=== PATIENT | male | born 1955 | race Caucasian/White ===

== ENCOUNTER 2018-01-03 09:14 | Inpatient (IN) ==
--- NOTE | 2018-01-03 09:35 | Emergency Department Report ---
General Adult HPI - General Chief complaint: Abdominal Pain Stated complaint: abd pain Time Seen by Provider: 01/03/18 09:35 Source: patient Mode of arrival: ambulatory Limitations: no limitations - History of Present Illness HPI narrative: 62 M presents to the ED with the chief complaint of left lower quadrant abdominal pain. Patient noted onset of symptoms earlier this week. Symptoms have been gradually progressive in nature. He has been passing mucus with his stool. No blood in the stool. Pain is moderate. Pain is dull. No radiation. He was at home when his symptoms began. Symptoms have been persistent in nature since onset. He does not note any exacerbating or remitting factors. No other complaints or associated symptoms. Patient denies any recent trauma, travel, poorly prepared food, or recent antibiotic use. - Related Data Home Medications Medication Instructions Recorded Confirmed 5-Hydroxytryptophan (5-Htp) [5-Htp] 100 mg PO DAILY PRN 01/03/18 01/03/18 Acetaminophen [Tylenol] 1,000 mg PO DAILY 01/03/18 01/03/18 Albuterol Sulfate [Proair Hfa] 2 puff INH Q4H PRN 01/03/18 01/03/18 Aspirin [Adult Aspirin] 81 mg PO DAILY 01/03/18 01/03/18 Budesonide/Formoterol Fumarate 2 spray INH BID 01/03/18 01/03/18 [Symbicort 160-4.5 Mcg Inhaler] Docusate Sodium [Colace] 100 mg PO HS 01/03/18 01/03/18 Fluticasone Nasal [place] [Flonase] 1 spray EA NOSTRIL DAILY 01/03/18 01/03/18 Ibuprofen [Advil] 400 mg PO BID 01/03/18 01/03/18 Omeprazole [Prilosec] 20 mg PO DAILY 01/03/18 01/03/18 Psyllium Husk [Metamucil] 1 dose PO DAILY 01/03/18 01/03/18 Allergies Allergy/AdvReac Type Severity Reaction Status Date / Time morphine Allergy Rash Verified 01/03/18 09:21 Review of Systems Constitutional: Denies: fever, weakness Eyes: Denies: eye pain, vision change ENT: Denies: ear pain, throat pain Cardiovascular: Denies: chest pain, palpitations Respiratory: Denies: cough, dyspnea Gastrointestinal: Reports: abdominal pain, diarrhea. Denies: nausea, vomiting Genitourinary: Denies: urgency, dysuria Musculoskeletal: Denies: back pain, arthralgia Integumentary: Denies: erythema, rash Neurological: Denies: headache, numbness, paresthesias Psychiatric: Denies: anxiety, depression Endocrine: Denies: polydipsia, polyuria Hematological/Lymphatic: Denies: easy bruising, lymphadenopathy Allergic/Immunologic: Denies: facial swelling, urticaria PFSH Patient Stated Medical History Asthma Yes Sleep Apnea No Gastroesophageal Reflux Yes Disease Other GI Yes: diverticuli Hx Kidney Stones Yes Clinic Medical History (Last Reviewed 12/01/17 @ 16:12 by DANY Mcmullen) Asthma (Chronic Medical) Allergic bronchitis (Chronic Medical) Allergic rhinitis (Chronic Medical) Hyperlipidemia (Chronic Medical) Hx of renal calculi (Acute Medical) 1997 Surgical History: Tonsillectomy 1960. Spermatocelectomy 2000. L hernia repair 2005. Hemorrhoidectomy. BILATERAL CATARCT SURGERY - LEFT 09/02/16, RIGHT 10/14. Right shoulder arthroscopic rotator cuff repair. W/ Right shoulder arthroscopic limited debridement superior labrum. W/ Right shoulder arthroscopic subacromial decompression/acromioplasty. 07/22/17 Family History: Family History (Last Reviewed 12/01/17 @ 16:12 by DANY Mcmullen) Father , at age 55 Esophageal cancer Mother , at age 75 High blood pressure Osteoporosis Cancer of lung - Social History Smoking status: Former smoker second hand exposure: No Quit date: 06/01/09 Substance use type: does not use Alcohol intake frequency: does not drink Housing: house Household members: spouse, other Current occupational status: employed Current occupation: Dispatcher for [employer] Does patient use chewing tobacco?: No Physical Exam - Limitations Limitations: no limitations - General General appearance: alert, in no apparent distress - Normal Exams: Head:: Normocephalic without trauma Eyes:: Pupils are PERRLA w/ EOMI, No scleral icterus, irritation, or foreign bodies noted ENMT:: No facial trauma, nasal exudates, pharyngeal erythema, or exudates are noted Dental: No fractured, loose, or missing teeth noted Neck:: Full range of motion, without adenopathy, JVD, bruits or thyromegaly Chest/Respirations:: Clear all mackenzie, with good airflow, and symmetry bilaterally Cardiovascular:: Regular rate and rhythm, without murmur or gallop, Pulses 2+ all extremities, capillary refill, <2 seconds all extremities Abdomen:: Bowel sounds positive (Soft. Left lower quadrant tenderness to palpation without rebound or guarding. No CVA tenderness.), non-distended, no hepatosplenomegaly, masses or bruits noted Lymphatic:: No lymphadenopathy, or lymphedema noted Musculoskeletal:: No tenderness, or deformity noted, good range of motion, all extremities Integumentary:: No rashes, hives, or bruising noted, hair and nails, without abnormality Neurological:: Patient is alert, and oriented, cranial nerves, motor/sensory/ cerebellar, exams w/o gross deficits, to observation Psychiatric:: Patient exhibits, appropriate attention, emotion and affect Course Vital Signs Temperature 97 F 01/03/18 09:17 Pulse Rate 98 01/03/18 09:17 Respiratory Rate 16 01/03/18 09:17 Blood Pressure 157/87 H 01/03/18 09:17 Pulse Oximetry 98 01/03/18 09:17 Temperature 97 F 01/03/18 09:17 Pulse Rate 75 01/03/18 11:28 Respiratory Rate 20 01/03/18 11:28 Blood Pressure 139/77 01/03/18 11:28 Pulse Oximetry 99 01/03/18 11:28 Medical Decision Making - [facility] Narrative Medical decision making narrative: Labs / imaging were discussed in detail with the patient and questions were answered. Patient was given gentle IV hydration. He was started on Zosyn after blood cultures and lactic acid were obtained in the emergency department. Patient declines offered analgesic pain medication on multiple occasions in the emergency department. Patient appears to have complicated diverticulitis and will be admitted to the service of the hospitalist Dr. Vargas after discussion with her. Patient was also discussed with general surgery Dr. Lopez who is in agreement with the current plan of management. Patient is admitted to the hospital in improved condition. No further orders for accepting or consulting physicians who were in agreement with the current plan of management. Patient was ordered Zosyn at 12:41 PM when sepsis was considered. Lactic acid was less than 4.0. He was never hypotensive in the emergency department. - Differential Diagnosis diverticulitis, UTI, metabolic process, Renal stone - Lab Data Result diagrams: 01/03/18 10:14 01/03/18 10:14 Lab Results 01/03/18 01/03/18 01/03/18 Range/Units 10:14 10:14 10:15 WBC 16.0 H (4.5-11.0) T/MM3 RBC 4.75 (4.50-5.90) M/MM3 Hgb 14.2 (13.5-17.5) GM/DL Hct 41.4 (41-53) % MCV 87.2 (80-100) UM3 MCH 29.9 (26-34) UUG MCHC 34.3 (31-37) GM/DL RDW Std Deviation 40.2 (36.9-50.2) FL Plt Count 319 (130-400) T/MM3 MPV 10.1 (9.4-12.4) UM3 Immature Gran % (Auto) Not performed Neut % (Auto) Not performed Lymph % (Auto) Not performed [place] % (Auto) Not performed Eos % (Auto) Not performed Baso % (Auto) Not performed Neut # (Auto) Not performed Lymph # (Auto) Not performed [place] # (Auto) Not performed Eos # (Auto) Not performed Baso # (Auto) Not performed Abs Immat Gran (auto) Not performed Neutrophils % (Manual) 83.0 H (33-66) % Band Neutrophils % 1.0 (0-6) % Lymphocytes % (Manual) 9.0 L (23-45) % Reactive Lymphs % 4.0 H (0-0) % Monocytes % (Manual) 3.0 (0-9.0) % Neutrophils # (Manual) 13.3 H (1.8-7.7) T/MM3 Band Neutrophils # 0.2 T/MM3 Lymphocytes # (Manual) 1.4 (1-4.8) T/MM3 Abs React Lymphs (Man) 0.6 H (0-0) T/MM3 Monocytes # (Manual) 0.5 (0-0.8) T/MM3 RBC Morph Comment Normal Turbidity < 20 (0-20) Sodium 137 (136-146) MEQ/L Potassium 4.0 (3.6-5) MEQ/L Chloride 98 (98-107) MEQ/L Carbon Dioxide 29 (22-30) MEQ/L Anion Gap 10 (5-15) meq/L BUN 10.0 (9-20) MG/DL Creatinine 0.7 L (0.8-1.5) mg/dL Estimated Creat Clear 84 (>50) mL/min GFR Calculation 114 (>60) mL/min BUN/Creatinine Ratio 14 (6-26) RATIO Glucose 112 H (75-110) MG/DL Calculated Osmolality 264 (261-280) MOSM/KG Calcium 8.9 (8.4-10.2) MG/DL Total Bilirubin 0.80 (0.20-1.30) MG/DL Icterus Index < 2 (0-7) AST 26 (17-59) U/L ALT 22 (1-50) U/L Alkaline Phosphatase 102 (38-126) U/L Total Protein 7.4 (6.3-8.2) g/dL Albumin 4.3 (3.5-5.0) g/dL Globulin 3.1 (2.4-3.6) G/DL Albumin/Globulin Ratio 1.4 (1.1-2.2) RATIO Lipase 20 L (23-300) U/L Specimen Hemolysis < 15 (0-25) Ur Collection Type Urine, void-cc/notcc Urine Color Yellow (YELLOW) Urine Clarity Clear Urine pH 6.0 (5.0-8.0) Ur Specific [place] 1.010 L (1.015-1.025) Urine Protein Negative (NEGATIVE) Urine Glucose (UA) Negative (NEGATIVE) Urine Ketones 2+ A (NEGATIVE) Urine Occult Blood 1+ A (NEGATIVE) Urine Nitrate Negative (NEGATIVE) Urine Bilirubin Negative (NEGATIVE) Urine Urobilinogen 1.0 (NORMAL) EU/DL Ur Leukocyte Esterase Negative (NEGATIVE) Urine RBC 0-1 (0-3) /HPF Urine WBC 0-1 (0-5) /HPF Ur Squamous Epith Cells 0-5 Urine Bacteria Trace H (NEGATIVE) Urine Mucus Present Ur Culture Indicated? Cult not indicated - Radiology Data CT Abdomen/pelvis: Thickening of the left lower quadrant sigmoid colon with diverticulosis and surrounding inflammatory change consistent with acute diverticulitis. Hypodense area measuring 3.9 x 1.8 x 2.6 cm suspicious for early abscess. No free air. Disposition Clinical Impression: Diverticulitis Disposition: 02 To [facility] [place] Acute Care Condition: Improved Time of Disposition: 12:15 (Admit. Dr. Vargas. ) - Seen By: physician
[2018-01-03] MEDS ORDERED: SALINE FLUSH 10ml SYRINGE IVF PRN (09:37)
[2018-01-03] MEDS ORDERED: NS 1,000 ML IV ONE (10:08)
[2018-01-03] MEDS ORDERED: IOHEXOL 300mg/ml 100ml INJECTION ONE (11:44)
[2018-01-03] MEDS ORDERED: SALINE FLUSH 10ml SYRINGE ONE (11:44)
[2018-01-03] MEDS ORDERED: PIPERACILLIN/TAZOBACTAM 4.5 GM in NS 100 ML IV ONE (12:41)
[2018-01-03] MEDS ORDERED: CIPROFLOXACIN IVPB 400 MG/200 ML BAG IV SCH (12:45)
[2018-01-03] MEDS ORDERED: MetroNIDAZOLE PB 500 MG/100 ML BAG IV SCH (12:45)
--- NOTE | 2018-01-03 12:55 | CT Scan Report ---
Indication: lower abdominal pain PROCEDURE: CT abdomen pelvis w con: Encounter: Initial Comparison: None Technique: Axial CT images were performed through the abdomen and pelvis after the administration of intravenous contrast. Coronal and sagittal two-dimensional reformats. Automated Exposure Control and Iterative Reconstruction dose reducing techniques were utilized. Contrast: Omnipaque 300 100 mL Findings: Small 2 mm right middle lobe pulmonary nodule. Lung bases are otherwise clear. The liver is normal apart from tiny low-attenuation foci, too small to definitively characterize. The spleen, pancreas, adrenal glands and kidneys are within normal limits. No abdominal or pelvic lymphadenopathy. Bladder is normal. Prostate and rectum are normal. There is significant inflammation in the mid sigmoid colon with wall thickening. No free air. There is an area of fluid was removed and enhancement measuring 3.2 cm in diameter on axial image #9 which appears to be within the wall of the sigmoid colon that could represent a developing pericolonic or intramural abscess. Scattered diverticula present. No evidence of bowel obstruction. The appendix is normal. Small amount of free pelvic fluid. Bone windows show no acute findings. Impression: Severe sigmoid diverticulitis with possible developing phlegmon or intramural abscess. There is a preliminary report by [employer]. .
[2018-01-03] MEDS ORDERED: BISACODYL 10 MG SUPPOSITORY RECTALLY PRN (13:42)
[2018-01-03] MEDS ORDERED: ACETAMINOPHEN 325 MG TABLET PO PRN (13:42)
[2018-01-03 13:44] VITALS: BMI 29.1
[2018-01-03] MEDS ORDERED: ALBUTEROL/IPRATROPIUM 2.5mg-0.5mg/3ml NEB IPPB PRN (13:49)
[2018-01-03] MEDS: NS 1,000 ML IV SCH (13:55)
--- NOTE | 2018-01-03 13:57 | History & Physical Report ---
History of Present Illness Date: 01/03/18 Chief complaint: abdominal pain HPI: 62y/o male pt with h/o COPD/asthma and HLP presented to the ED after 4-5 days of abdominal pain. He reports it started with stomach cramps about 5 days ago. He takes Metamucil daily and thought he needed a bowel movement. 4 days ago he ate supper and as he got up to walk he lost control of his rule but what came out was a mucous the clear to yellowish liquid that ran down his leg. He continued to have quite a bit of cramping. That next morning the same thing happened. He decided to quit eating at that point and things did get better. Last night he decided to eat and had a grilled cheese sandwich and a bowl of chicken noodles soup. He has continued to have some cramping with only slight liquid output with minimal stool. He states he feels like he needs to go and pushes quite a bit but can't get much out. His last normal bowel movement was this past Thursday. He states that when he was urinating his abdomen would hurt a bit as well. The cramping and discomfort is in the bilateral distal lower quadrants and suprapubic area. He states he's been intermittently hot and cold for the last 4 to 5 days but denies any fevers. He had one episode of lightheadedness last Thursday when getting out of the car and standing. He's not had any problems since then or prior to that. He denies any problems with worsening shortness of breath or dyspnea on exertion. He states he uses Symbicort daily and if he ever has a wheeze or slight increase in breathing problems he'll just use his other PRN inhalers. He denies any cough or sputum production. He denies any chest pain, pressure or tightness. He denies palpitations. He was slightly nauseated yesterday and he had some leftover anti- in that it from when he had his shoulder surgery to take with Percocet for pain and he took one of those with resolution and no further problems with nausea. He said no vomiting. Other than the mucous he is not really had any stool out since Thursday. He denies any black tarry stools or bloody stools. He denies any problems urinating but did have a little discomfort when urinating in the same area as his abdominal cramping. He even thought he might have a urinary tract infection causing all the problems so he took his 's home remedy of cinnamon and honey. He occasionally has some swelling in his bilateral ankles at the end of the day but it's always gone by morning. Review of Systems All systems PM: 10-point ROS was reviewed, no additional remarkable complaints except Past Medical History Medical History: Medical History (Last Updated 01/03/18 @ 14:02 by Flory Vargas MD) Asthma (Chronic) Allergic bronchitis (Chronic) Allergic rhinitis (Chronic) Hyperlipidemia (Chronic) Hx of renal calculi (Acute) 1997 Basal cell carcinoma Surgical History: Tonsillectomy 1960. Spermatocelectomy 2000. L hernia repair 2005. Hemorrhoidectomy. BILATERAL CATARCT SURGERY - LEFT 09/02/16, RIGHT 10/14. Basal cell ca removed. Right shoulder arthroscopic rotator cuff repair. W/ Right shoulder arthroscopic limited debridement superior labrum. W/ Right shoulder arthroscopic subacromial decompression/acromioplasty. 07/22/17 Family History: Family History (Last Reviewed 12/01/17 @ 16:12 by DANY Mcmullen) Father , at age 55 Esophageal cancer Mother , at age 75 High blood pressure Osteoporosis Cancer of lung Family History: As Above - Social History Smoking status: Former smoker (tobacco use for 43 yrs, smoked a maximum 1 1/2 packs a day as well as chewing half can a day) Substance use type: does not use Alcohol intake: never Housing: house Household members: spouse Does patient use chewing tobacco?: No Social history: Patient is and lives with his . He's active. He denies any current alcohol use. Started smoking and chewing when he was 11" in 2009 after maximum of 1 1/2 packs per day of cigarettes and half a candidate to a day Medications Home Medications Medication Instructions Recorded Confirmed Type 5-Hydroxytryptophan (5-Htp) [5-Htp] 100 mg PO DAILY PRN 01/03/18 01/03/18 History Acetaminophen [Tylenol] 1,000 mg PO DAILY 01/03/18 01/03/18 History Albuterol Sulfate [Proair Hfa] 2 puff INH Q4H PRN 01/03/18 01/03/18 History Aspirin [Adult Aspirin] 81 mg PO DAILY 01/03/18 01/03/18 History Budesonide/Formoterol Fumarate 2 spray INH BID 01/03/18 01/03/18 History [Symbicort 160-4.5 Mcg Inhaler] Docusate Sodium [Colace] 100 mg PO HS 01/03/18 01/03/18 History Fluticasone Nasal [place] [Flonase] 1 spray EA NOSTRIL DAILY 01/03/18 01/03/18 History Ibuprofen [Advil] 400 mg PO BID 01/03/18 01/03/18 History Omeprazole [Prilosec] 20 mg PO DAILY 01/03/18 01/03/18 History Psyllium Husk [Metamucil] 1 dose PO DAILY 01/03/18 01/03/18 History Allergies Allergy/AdvReac Type Severity Reaction Status Date / Time morphine Allergy Intermediate Rash Verified 01/03/18 13:50 Exam Vital Signs: Temperature 97 F 01/03/18 09:17 Pulse Rate 75 01/03/18 13:37 Respiratory Rate 20 01/03/18 13:37 Blood Pressure 139/77 01/03/18 11:28 Pulse Oximetry 99 01/03/18 13:37 Height/Weight/BMI: Height 1.75 m Weight 89.5 kg Body Mass Index 29.1 Comments: Gen: alert and oriented. NAD. Pleasant and conversive Skin: warm and dry, No rashes HEENT: NC/AT PERRL, EOMI, Sclera, lids and conjunctiva wnl. MMM. OP clear. Neck: No JVD, Carotids 2+ without bruits. Lungs: clear without rales, rhonchi or wheezes CV: regular, No murmur, rubs or gallops. Pedal pulses 2+, radial pulses 2+, No edema Abd: soft. +BS, nondistended, mildly tender to palpation distally from the right to the left quadrant, no rebound or guarding MS: POOL, Normal ROM, strength Neuro: No focal deficit Psy: Appropriate mood and affect Results - Labs CBC & Chem 7: 01/03/18 10:14 01/03/18 10:14 Microbiology Results: Microbiology 01/03/18 13:00 Peripheral/Iv Start Gram Stain - Final Not performed 01/03/18 12:55 Peripheral/Iv Start Gram Stain - Final Not performed Assessment and Plan Assessment and Plan: Sigmoid Diverticulitis with possible abscess formation -Gen. surgery consulted -IV fluids -Cipro, Zosyn and Flagyl -NPO Leukocytosis -secondary to diverticulitis -IV antibiotics -follow labs COPD/asthma -continue inhalers -story therapy with PRN Duonebs Prophylaxis -IV PPI, Lovenox - Physician Narrative Narrative: Date: 01/03/18 Time: 1350 Hospital Course Summary Disclaimer: The visit summary below is not to be considered part of the above Progress Note.
[2018-01-03] MEDS ORDERED: FentaNYL 100 MCG/2 ML INJECTION IVP PRN (15:30)
[2018-01-03] MEDS ORDERED: ONDANSETRON 4 MG/2 ML INJECTION IVP PRN (15:31)
[2018-01-03] MEDS ORDERED: NS FLUSH BAG 500ml IV PRN (17:57)
[2018-01-03] MEDS ORDERED: SALINE FLUSH 10ml SYRINGE IV PRN (17:57)
[2018-01-03] MEDS: PIPERACILLIN/TAZOBACTAM 4.5 GM in NS 100 ML IV SCH (18:37)
[2018-01-03] MEDS: ARFORMOTEROL NEB 15mcg/2ml AEROSOL SCH (20:03)
[2018-01-03] MEDS: BUDESONIDE INH.SOLN 0.5mg/2ml NEB AEROSOL SCH (20:04)
[2018-01-03] MEDS: MetroNIDAZOLE PB 500 MG/100 ML BAG IV SCH (20:15)
[2018-01-04] MEDS: CIPROFLOXACIN IVPB 400 MG/200 ML BAG IV SCH ×2 (00:04→11:48)
[2018-01-04] MEDS: PIPERACILLIN/TAZOBACTAM 4.5 GM in NS 100 ML IV SCH ×4 (01:10→20:24)
[2018-01-04] MEDS: NS 1,000 ML IV SCH ×4 (03:22→20:03)
[2018-01-04] MEDS: MetroNIDAZOLE PB 500 MG/100 ML BAG IV SCH ×2 (04:28→12:57)
--- NOTE | 2018-01-04 08:19 | General Surgery Consult Note ---
Consult date: 01/04/18 Attending Physician: Alysa Ball MD [facility] Patient Stated Medical History Cataracts Yes Asthma Yes: on symbicort and albuterol inhaler Gastroesophageal Reflux Yes Disease Hiatal Hernia Yes Other GI Yes: diverticuli Hx Kidney Stones Yes Clinic Medical History (Last Updated 01/03/18 @ 14:02 by Flory Vargas MD) Asthma Allergic bronchitis Allergic rhinitis Hyperlipidemia Hx of renal calculi 1997 Basal cell carcinoma Surgical History: Colonoscopy diverticulosis and hemorrhoids 09/09/2011 [place]. Hemorrhoidectomy with Harmonic and Fissurectomy - [place]. Tonsillectomy 1960. Spermatocelectomy 2000. L hernia repair 2005. Hemorrhoidectomy. BILATERAL CATARCT SURGERY - LEFT 09/02/16, RIGHT 10/14/16. Basal cell ca removed. Right shoulder arthroscopic rotator cuff repair. W/ Right shoulder arthroscopic limited debridement superior labrum. W/ Right shoulder arthroscopic subacromial decompression/acromioplasty. 07/22/17 Family History: Family History (Last Reviewed 12/01/17 @ 16:12 by Irene Velasquez [facility]) Father , at age 55 Esophageal cancer Mother , at age 75 High blood pressure Osteoporosis Cancer of lung - Social History Smoking status: Former smoker (tobacco use for 43 yrs, smoked a maximum 1 1/2 packs a day as well as chewing half can a day) second hand exposure: No Quit date: 06/01/09 Substance use type: does not use Alcohol intake: never Alcohol intake frequency: does not drink Housing: house Household members: spouse Current occupational status: employed Current occupation: Dispatcher for [employer] Does patient use chewing tobacco?: No Medications Home Medications Medication Instructions Recorded Confirmed Type 5-Hydroxytryptophan (5-Htp) [5-Htp] 100 mg PO DAILY PRN 01/03/18 01/03/18 History Acetaminophen [Tylenol] 1,000 mg PO DAILY 01/03/18 01/03/18 History Albuterol Sulfate [Proair Hfa] 2 puff INH Q4H PRN 01/03/18 01/03/18 History Aspirin [Adult Aspirin] 81 mg PO DAILY 01/03/18 01/03/18 History Budesonide/Formoterol Fumarate 2 spray INH BID 01/03/18 01/03/18 History [Symbicort 160-4.5 Mcg Inhaler] Docusate Sodium [Colace] 100 mg PO HS 01/03/18 01/03/18 History Fluticasone Nasal [place] [Flonase] 1 spray EA NOSTRIL DAILY 01/03/18 01/03/18 History Ibuprofen [Advil] 400 mg PO BID 01/03/18 01/03/18 History Omeprazole [Prilosec] 20 mg PO DAILY 01/03/18 01/03/18 History Psyllium [place] [Metamucil] 1 dose PO DAILY 01/03/18 01/03/18 History Allergies Allergy/AdvReac Type Severity Reaction Status Date / Time morphine Allergy Intermediate Rash Verified 01/03/18 13:50 Review of Systems 10-point ROS: negative except for HPI and the following: - General General: Present: chills, night sweats - Cardiovascular Cardiovascular: Present: edema/swelling (ankles but usually gone after leg elevation or in the morning) - Respiratory Respiratory: Present: wheezing (COPD), difficulty breathing - Gastrointestinal Gastrointestinal: Present: diarrhea - Neurological Neurological: Present: muscle weakness, other (light headed) - Vital Signs Last Vital Signs Temp 98 F 01/04/18 00:07 Pulse 79 01/04/18 00:07 Resp 16 01/04/18 00:07 BP 129/78 01/04/18 00:07 Pulse Ox 96 01/04/18 00:07 - Laboratory Result Diagrams: 01/04/18 04:25 01/04/18 04:25 - Microbiogy Microbiology 01/03/18 13:00 Peripheral/Iv Start Blood Culture - Preliminary Culture Initiated - Results Pending 01/03/18 12:55 Peripheral/Iv Start Blood Culture - Preliminary Culture Initiated - Results Pending General Surgery Results - Results Labs: 01/04/18 04:25 01/04/18 04:25 Microbiology: Microbiology 01/03/18 13:00 Peripheral/Iv Start Blood Culture - Preliminary Culture Initiated - Results Pending 01/03/18 12:55 Peripheral/Iv Start Blood Culture - Preliminary Culture Initiated - Results Pending
[2018-01-04] MEDS: BUDESONIDE INH.SOLN 0.5mg/2ml NEB AEROSOL SCH ×2 (08:57→20:10)
[2018-01-04] MEDS: ARFORMOTEROL NEB 15mcg/2ml AEROSOL SCH ×2 (08:57→20:10)
[2018-01-04] MEDS: FLUTICASONE NASAL SPRAY 50mcg EA NOSTRIL SCH (09:30)
[2018-01-04] MEDS: ENOXAPARIN 40 MG/0.4 ML INJECTION SQ SCH (09:31)
--- NOTE | 2018-01-04 09:46 | Progress Note ---
- Date 01/04/18 Subjective: Saleem is seen today in follow-up. He is overall feeling good today. Denies having abdominal pain or nausea. He reports continues to have a small amount of mucous in stools. Tolerating sips/chips PO intake. Afebrile, vital signs normal. Objective Vital signs: Temperature 97.9 F 01/04/18 08:00 Pulse Rate 90 01/04/18 08:00 Respiratory Rate 18 01/04/18 08:59 Blood Pressure 131/74 01/04/18 08:00 Pulse Oximetry 96 01/04/18 08:59 Height/Weight/BMI: Height 1.75 m Weight 90.6 kg Body Mass Index 29.1 - Constitutional Present: no acute distress, well nourished, well developed - Routine HEENT Exam Eye: Present: EOMI ENT: Present: mucous membranes moist, dentition normal - Routine Respiratory Exam Present: CTA bilaterally. Absent: wheezes - Routine Cardiovascular Exam Present: RRR, S1, S2. Absent: murmur - Routine Abdominal Exam Present: soft, non distended, non tender. Absent: normoactive bowel sounds ( hypoactive ), tenderness - Routine Extremities Exam Present: no edema, full ROM, pulses intact - Routine Skin Exam Present: intact, dry, warm - Routine Neurological Exam Present: alert, oriented X3, CN II-XII intact, moving all extremities - Routine Lymphatic Exam Lymphatic: Absent: adenopathy - Routine Psychiatric Exam Present: normal affect, normal thought process, cooperative Results - Labs CBC & Chem 7: 01/04/18 04:25 01/04/18 04:25 Microbiology Results: Microbiology 01/03/18 13:00 Peripheral/Iv Start Blood Culture - Preliminary Culture Initiated - Results Pending 01/03/18 12:55 Peripheral/Iv Start Blood Culture - Preliminary Culture Initiated - Results Pending Assessment and Plan Assessment and Plan: Impression Sigmoid Diverticulitis with possible abscess formation Leukocytosis- Improved COPD/asthma Plan Continues on Cipro, Zosyn and Flagyl IV for antimicrobial coverage Leukocytosis improved- 8.5 Tolerating sips/chips Consultation by Dr Lopez for surgical recommendations Lovenox SQ daily for PPX 01/04/2018-5pm-I examined the patient independently. I reviewed this chart, the patient history, and the SUPERVISOR NURSE's/PA's documented findings as above. We discussed and formulated the assessment and plan as above with the additions below.-Dr. Ball The patient was seen this evening in his room. He states his abdominal pain has resolved. The urinary urgency he had prior has resolved. He denies any nausea. He has been up walking in the halls without difficulty. He denies any shortness of breath. He has some chronic right shoulder pain and would like to take some Tylenol or ibuprofen. I told him I would prefer Tylenol and we will add that. He is afebrile, vital signs are stable, O2 sat is 96% on room air On exam he is alert and in no acute distress. Chest is clear to auscultation. Cardiovascular reveals a regular rate and rhythm. Abdomen is soft, nontender and nondistended with hypoactive bowel sounds. Extremities are free of clubbing cyanosis or edema. CT abdomen report from yesterday was reviewed. Lab today shows white count of 8.5 down from 16 yesterday. Neutrophils are 77% down from 83%. Basic metabolic profile is essentially normal. Lactate was normal 3 yesterday. UA revealed 2+ ketones and +1 blood no signs of infection. Impression and plan Fortunately, the patient is feeling better. Pain has resolved. He has no nausea or vomiting. Diverticulitis with possible intramural abscess-currently on Zosyn, Cipro and Flagyl-we'll discuss antibiotics and further care plan with Dr. Lopez. Continue IV fluids for now Agree with Lovenox for DVT prophylaxis Tylenol 1000 mg by mouth every 6 hours when necessary for shoulder pain Continue when necessary DuoNeb, and scheduled Brovana and budesonide for asthma/ possible COPD DVT Prophylaxis: Lovenox Resuscitation Status: Full Code - Physician Narrative Narrative: Date: 01/04/18 Time: 0940 Hospital Course Summary Disclaimer: The visit summary below is not to be considered part of the above Progress Note. Hospital Course: 01/04 Continues on Cipro, Zosyn and Flagyl IV for antimicrobial coverage Leukocytosis improved- 8.5 Tolerating sips/chips Consultation by Dr Lopez for surgical recommendations Lovenox SQ daily for PPX
--- NOTE | 2018-01-04 10:22 | Consultation ---
DATE OF CONSULTATION 01/03/2018 FINDINGS Mr. Dong is a 62-year-old gentleman whom I was asked to see today as a result of his history and physical findings of abdominal pain in conjunction with an abnormal CT scan revealing evidence for diverticulitis. Upon questioning Mr. Dong, he informs me that earlier this week he began to notice a component of abdominal discomfort. Patient states that this was perhaps about 5-6 days ago. Pain was noted within his lower abdomen. Patient points to the left lower quadrant. As the week has progressed, the pain has become more severe in nature. Pain is more noticeable after eating or aggravated when he is lying down in the evening. The patient also informs me that he has noted increasing pain with urination. The patient states that a couple times this week, he has inadvertently passed some mucousy material from his anus "without his knowledge". The patient states that he has felt as if he has been running a fever but has "taken his temperature a couple of times and has been normal". He does have a slight component of some chills intermittently. As a result of this increasing abdominal pain and intermittent incontinence of mucousy material from his anus, patient presented to the emergency room for further evaluation today. Upon questioning the patient, he denies prior history for diverticulitis. Patient denies family history for colon cancer. He states that he did undergo a colonoscopy a few years ago by Dr. Kimball that was normal. PAST MEDICAL HISTORY Chronic Illness/System disorders: 1. History for asthma. 2. History for hyperlipidemia. 3. History nephrolithiasis. PAST SURGICAL HISTORY Includes: 1. Recent right shoulder surgery. 2. Left inguinal hernia repair performed by myself about 12 years ago in 2005. 3. Bilateral cataract surgery. 4. "Testicular surgery". 5. Hemorrhoidectomy MEDICATIONS Medications on admission included: 1. 5 hydroxytryptophan. 2. Tylenol. 3. ProAir HFA. 4. Baby aspirin. 5. Symbicort. 6. Colace. 7. Flonase. 8. Advil. 9. Prilosec. 10. Metamucil. For complete doses and frequencies please refer to EMR. ALLERGIES MORPHINE. SOCIAL HISTORY The patient states that he stopped smoking about 10 years ago. Prior to that, he had smoked since he was "11 years of age". Patient currently denies tobacco use. FAMILY HISTORY Patient states that his father from esophageal cancer. His mother from lung cancer. REVIEW OF SYSTEMS Complete review of systems was undertaken with the patient and was essentially negative except as stated above in Findings section and Past Medical History section for constitutional, HEENT, cardiac, respiratory, GI, , musculoskeletal , hematologic/oncologic, endocrine and psychiatric. PHYSICAL EXAMINATION Mr. Dong is a 62-year-old gentleman who today did not appear to be in acute distress. He was sitting upright in the gurney in the emergency room and did not appear to be in acute distress. VITALS: Temperature 97, pulse 75, respirations 20, blood pressure 139/77, SaO2 99% on room air. HEENT: Normocephalic. Pupils are equally round and react to light and accommodation. NECK: Supple without lymphadenopathy. CHEST: Clear to auscultation bilaterally. HEART: Regular rate and rhythm. Normal S1, S2, without gallops, murmurs or clicks. ABDOMEN: Palpation of the abdomen does indeed reveal localized tenderness within the left lower quadrant, almost within the inguinal region and slightly above the suprapubic region. Patient does display a component of voluntary guarding. I did not appreciate any evidence for involuntary guarding or rebound tenderness. Outside the left lower quadrant, the remaining abdomen is fairly soft and nontender. No evidence for hepatosplenomegaly or other abnormal masses. EXTREMITIES: Without clubbing, cyanosis, or edema. NEURO: Cranial nerves II-XII grossly intact. Patient without focal, motor, or sensory deficits. LABORATORY/RADIOGRAPHIC/REVIEW OF PATIENT'S CHART Patient had a CBC upon admission and his white count was elevated at 16,000. Hemoglobin was normal at 14.2. CMP was obtained and found to be essentially within normal limits. Glucose was slightly elevated at 112. UA was obtained and found to be essentially within normal limits. The patient did undergo a CT scan of his abdomen and pelvis. I reviewed the CT scan personally as well as the dictated report. Upon CT scan within the left lower quadrant of the abdomen one can see mesenteric fat stranding consistent with inflammation. One could see scattered diverticula within the colon. There does appear to be a fluid collection that appears to be almost within the colon itself. This fluid collection was about 3 cm in diameter. The final dictated report from the radiologist was that of severe sigmoid diverticulitis with possible developing phlegmon or intramural abscess involving sigmoid colon. ASSESSMENT 62-year-old gentleman with complicated bout of diverticulitis. Patient without acute surgical abdomen. PLAN I would recommend placing the patient in hospital and initiating broad-spectrum antibiotics. I told the emergency room physician earlier today that I would recommend that we go ahead and place him on Zosyn 3.375 grams IV q.6h. Will continue to follow closely with serial abdominal examinations. Hopefully this phlegmonous process will resolve on its own behalf without ??antibiotic?? therapy. Will continue to follow closely with serial laboratory and abdominal examinations. The above plan was discussed with the patient and his . They understood and agreed. JORI
[2018-01-04] MEDS: ACETAMINOPHEN 500 MG TABLET PO PRN (18:26)
[2018-01-05] MEDS: PIPERACILLIN/TAZOBACTAM 4.5 GM in NS 100 ML IV SCH ×4 (01:15→21:16)
[2018-01-05] MEDS: ACETAMINOPHEN 500 MG TABLET PO PRN ×2 (04:09→13:43)
[2018-01-05] MEDS: NS 1,000 ML IV SCH ×2 (04:10→04:47)
[2018-01-05] MEDS: BUDESONIDE INH.SOLN 0.5mg/2ml NEB AEROSOL SCH ×2 (06:59→19:18)
[2018-01-05] MEDS: ARFORMOTEROL NEB 15mcg/2ml AEROSOL SCH ×2 (06:59→19:17)
[2018-01-05] MEDS: ENOXAPARIN 40 MG/0.4 ML INJECTION SQ SCH (09:16)
[2018-01-05] MEDS: FLUTICASONE NASAL SPRAY 50mcg EA NOSTRIL SCH (09:16)
--- NOTE | 2018-01-05 09:46 | General Surgery Progress Note ---
Subjective Patient reports: feels better, pain is less, tolerating liquids well (clears), bowel movement (although there is mucous with BMs), afebrile Narrative: He had just come from the restroom when I entered, ambulating and getting around without difficulty. Denies chest pain, nausea, abd pain currently. - Vital Signs Last Vital Signs Temp 97.8 F 01/05/18 07:53 Pulse 75 01/05/18 07:53 Resp 12 01/05/18 07:53 BP 130/74 01/05/18 07:53 Pulse Ox 96 01/05/18 07:53 - Laboratory Result Diagrams: 01/05/18 07:59 01/05/18 07:59 - Microbiogy Microbiology 01/03/18 13:00 Peripheral/Iv Start Blood Culture - Preliminary No Growth After 1 Day 01/03/18 12:55 Peripheral/Iv Start Blood Culture - Preliminary No Growth After 1 Day - Normal Exam General: awake, alert, oriented, no acute distress Cardiovascular: regular rate Respiratory: clear bilaterally, no labored breathing Abdominal: soft, no guarding, non-tender Psychiatric: normal affect Neurological: CN 2-12 grossly intact Assessment and Plan (1) Diverticulitis Current Visit: Yes Status: Acute Plan: He seems to be responding well to medical management. Anticipate he will be switched to PO antibiotics at time of discharge. Hospital Course Summary Disclaimer: The visit summary below is not to be considered part of the above Progress Note. Hospital Course: 01/04 Continues on Cipro, Zosyn and Flagyl IV for antimicrobial coverage Leukocytosis improved- 8.5 Tolerating sips/chips Consultation by Dr Lopez for surgical recommendations Lovenox SQ daily for PPX
--- NOTE | 2018-01-05 12:07 | Progress Note ---
DATE: 01/04/2018 FINDINGS Mr. Dong was seen this evening on rounds. He states that he has been having some mucousy stools and has been passing flatus. He states that his abdominal pain is improving. He states he is no longer experiencing pain during urination. VITALS: Afebrile. Normotensive. Last recorded vitals include temperature 98.5 , pulse 86, respirations 16, blood pressure 130/77, SAO2 96% on room air. HEENT: Normocephalic. Pupils are equally round and react to light and accommodation. CHEST: Clear to auscultation bilaterally. HEART: Regular rate and rhythm. Normal S1 and S2 without gallops, murmurs or clicks. ABDOMEN: Palpation of the abdomen reveals it to be soft. He still displays tenderness with palpation within the left lower quadrant. The tenderness, however, does appear improved in comparison to yesterday. He does have a slight component of some voluntary guarding with firm palpation but no evidence for involuntary guarding or rebound. LABORATORY/RADIOGRAPHIC REVIEW The patient had a CBC today and his white count has went from 16,000 down to 8.5. Hemoglobin is stable at 12.9. BMP obtained and found to be without marked abnormalities. ASSESSMENT 62-year-old gentleman with complicated bout of sigmoid diverticulitis with associated phlegmon/possible developing intramural abscess. Patient making clinical improvement. PLAN Continuation of broad-spectrum antibiotics. Will go ahead and place the patient on clear liquids. Will continue to follow closely. I am pleased with the patient's progress at this time. [facility]
--- NOTE | 2018-01-05 18:31 | Progress Note ---
DATE OF SERVICE 01/05/2018 FINDINGS Mr. Dong was seen earlier this morning on rounds. He informs me that he continues to improve. He is having less abdominal pain. He still is experiencing some mucousy material within his stools. He denies any pain upon urination. PHYSICAL EXAM VITAL SIGNS: Afebrile, normotensive. Last recorded vitals include temperature 96.8, pulse 89, respirations 14, blood pressure 116/75, SAO2 96% room air. HEENT: Normocephalic. Pupils are equally round and react to light and accommodation. CHEST: Clear to auscultation bilaterally. HEART: Regular rate and rhythm. Normal S1 and S2 without gallops, murmurs or clicks. ABDOMEN: Palpation of the abdomen today does indeed reveal significantly less tenderness in comparison to yesterday. With firm palpation within the left lower quadrant he does have a slight component of some voluntary guarding although this is markedly improved in comparison to yesterday's physical examination. He does not have any component of guarding or rebound. LABORATORY/RADIOGRAPHIC EVALUATION/REVIEW OF PATIENT'S CHART The patient's white count continues on a downward trend and is now down to 6.3. Does have a slight left shift with 75% neutrophils. BMP obtained and found to be without marked abnormalities. Blood cultures have been negative to date. ASSESSMENT 62-year-old gentleman with diverticulitis with associated phlegmon/possible intramural abscess. Patient making marked clinical improvement. PLAN Full liquids. Continuation of broad-spectrum antibiotics. The patient may be able to be discharged within the next 24-48 hours depending on his ongoing progress. I am pleased with the patient's progress at this time. [facility]
--- NOTE | 2018-01-05 20:08 | Progress Note ---
- Date 01/05/18 Subjective: The patient was seen this morning in his room. He had tolerated clear liquids without difficulties. He had no further abdominal discomfort. He passes very small stool covered in mucus. He continued to have mucus discharge from his rectum whenever he urinated. He denies shortness of breath or chest discomfort. He does feel hungry. He's had no nausea or vomiting. Objective Vital signs: Temperature 96.8 F 01/05/18 15:00 Pulse Rate 89 01/05/18 15:00 Respiratory Rate 14 01/05/18 19:00 Blood Pressure 116/75 01/05/18 15:00 Pulse Oximetry 97 01/05/18 19:00 Height/Weight/BMI: Height 1.75 m Weight 91 kg Body Mass Index 29.1 Comments: GEN-alert, oriented, no acute distress HEENT-sclera anicteric, oropharynx is moist NECK-supple CV-regular rate and rhythm CHEST-clear to auscultation bilaterally ABD-soft, mild left lower quadrant tenderness, positive bowel sounds, no distention -no Leija EXT-no edema NEURO-no focal deficits SKIN-warm and dry Results - Labs CBC & Chem 7: 01/05/18 07:59 01/05/18 07:59 Microbiology Results: Microbiology 01/03/18 13:00 Peripheral/Iv Start Blood Culture - Preliminary No Growth After 2 Days 01/03/18 12:55 Peripheral/Iv Start Blood Culture - Preliminary No Growth After 2 Days Assessment and Plan Assessment and Plan: Impression Sigmoid Diverticulitis with possible intramural abscess formation Leukocytosis- Improved COPD/asthma-stable Abdominal pain-resolved Plan Continue Zosyn for antimicrobial coverage Leukocytosis -improved Tolerating clear liquids. I did see and examine the patient at the same time that Dr. Lopez was in seeing the patient. He recommended advancing to full liquid diet. Possible discharge in the next 1-2 days depending upon pain control and how the patient is doing with advancing diet Discussed with Dr. Lopez Lovenox SQ daily for prophylaxis against DVT Continue when necessary DuoNeb, and scheduled Brovana and budesonide for asthma/ possible COPD DVT Prophylaxis: Lovenox Resuscitation Status: Full Code - Physician Narrative Narrative: Date: 01/05/18 Time: 2003 Hospital Course Summary Disclaimer: The visit summary below is not to be considered part of the above Progress Note. Hospital Course: 01/04 Continues on Cipro, Zosyn and Flagyl IV for antimicrobial coverage Leukocytosis improved- 8.5 Tolerating sips/chips Consultation by Dr Lopez for surgical recommendations Lovenox SQ daily for PPX
[2018-01-06] MEDS: PIPERACILLIN/TAZOBACTAM 4.5 GM in NS 100 ML IV SCH ×3 (01:37→14:23)
[2018-01-06] MEDS: ACETAMINOPHEN 500 MG TABLET PO PRN (01:54)
[2018-01-06] MEDS: BUDESONIDE INH.SOLN 0.5mg/2ml NEB AEROSOL SCH (07:06)
[2018-01-06] MEDS: ARFORMOTEROL NEB 15mcg/2ml AEROSOL SCH (07:07)
[2018-01-06] MEDS: FLUTICASONE NASAL SPRAY 50mcg EA NOSTRIL SCH (08:01)
[2018-01-06] MEDS: ENOXAPARIN 40 MG/0.4 ML INJECTION SQ SCH (08:02)
--- NOTE | 2018-01-06 10:47 | Progress Note ---
DATE 01/06/2018 FINDINGS Mr. Dong was without complaints today. He states that he is feeling better. He is no longer having mucousy stools. OBJECTIVE VITALS: Afebrile. Normotensive. Last recorded vitals include temperature 97.4 , pulse 66, respirations 14, blood pressure 131/99, SaO2 95% on room air. HEENT: Normocephalic. Pupils are equally round and react to light and accommodation. CHEST: Clear to auscultation bilaterally. HEART: Regular rate and rhythm. Normal S1, S2, without gallops, murmurs or clicks. ABDOMEN: Palpation of the abdomen today revealed it to be soft and essentially nontender. With fairly firm palpation, the patient had some minimal tenderness within the left lower quadrant. Pain has markedly improved since admission. ASSESSMENT 62-year-old gentleman with complicated bout of diverticulitis who has made marked clinical improvement following admission. PLAN Begin regular diet. If patient doing well this evening, may consider discharge to home on additional oral antibiotics over the course of the next week and have the patient follow up with me on an outpatient basis for further care. I am pleased with the patient's progress at this time. JORI
[2018-01-06 15:12] VITALS: BP 129/85; PULSE 73; RESP 18; TEMP 97.8; O2SAT 96
--- NOTE | 2018-01-06 17:25 | Discharge Summary ---
Discharge Information Date of admission: 01/03/18 12:42 Anticipated date of discharge: 01/06/18 Attending Physician: Alysa Ball MD Primary care physician: Dino Kimball MD Consults: 01/03/18 13:42 Physician Consult [CONS] Routine Consulting Provider: Abad Lopez Reason For Exam: Diverticulitis Ordering Provider has Notified [facility] [employer] And Planning: Yes - Discharge Diagnosis (1) Diverticulitis Status: Acute Problems Reviewed?: Yes Sigmoid Diverticulitis with possible intramural abscess formation Leukocytosis- Improved COPD/asthma-stable Abdominal pain-resolved - Procedures Procedures: none - Laboratory Labs: 01/05/18 07:59 01/05/18 07:59 Laboratory Tests 01/03/18 01/03/18 01/03/18 10:14 10:14 12:55 WBC 16.0 H Hgb 14.2 Total Bilirubin 0.80 Icterus Index < 2 AST 26 ALT 22 Alkaline Phosphatase 102 Total Protein 7.4 Albumin 4.3 Globulin 3.1 Albumin/Globulin Ratio 1.4 Triglycerides Cholesterol LDL Cholesterol, Calc VLDL Cholesterol HDL Cholesterol Cholesterol/HDL Ratio Plasma Lactate 1.6 01/03/18 01/04/18 01/04/18 18:12 04:25 04:25 WBC 8.5 D Hgb 12.9 L Total Bilirubin Icterus Index AST ALT Alkaline Phosphatase Total Protein Albumin Globulin Albumin/Globulin Ratio Triglycerides 68 Cholesterol 165 LDL Cholesterol, Calc 112.4 VLDL Cholesterol 13.6 HDL Cholesterol 39 L Cholesterol/HDL Ratio 4.2 Plasma Lactate 0.8 0.7 01/05/18 07:59 WBC 6.3 Hgb 12.6 L Total Bilirubin Icterus Index AST ALT Alkaline Phosphatase Total Protein Albumin Globulin Albumin/Globulin Ratio Triglycerides Cholesterol LDL Cholesterol, Calc VLDL Cholesterol HDL Cholesterol Cholesterol/HDL Ratio Plasma Lactate - Microbiology Microbiology 01/03/18 12:55 Peripheral/Iv Start Blood Culture - Preliminary No Growth After 3 Days 01/03/18 13:00 Peripheral/Iv Start Blood Culture - Preliminary No Growth After 3 Days - Radiology Radiology: Type of Exam(s): CT abdomen pelvis w con Reason for Exam(s): lower abdominal pain Findings: Small 2 mm right middle lobe pulmonary nodule. Lung bases are otherwise clear. The liver is normal apart from tiny low-attenuation foci, too small to definitively characterize. The spleen, pancreas, adrenal glands and kidneys are within normal limits. No abdominal or pelvic lymphadenopathy. Bladder is normal. Prostate and rectum are normal. There is significant inflammation in the mid sigmoid colon with wall thickening. No free air. There is an area of fluid was removed and enhancement measuring 3.2 cm in diameter on axial image #9 which appears to be within the wall of the sigmoid colon that could represent a developing pericolonic or intramural abscess. Scattered diverticula present. No evidence of bowel obstruction. The appendix is normal. Small amount of free pelvic fluid. Bone windows show no acute findings. Impression: Severe sigmoid diverticulitis with possible developing phlegmon or intramural abscess. History of Present Illness HPI: 62y/o male pt with h/o COPD/asthma and HLP presented to the ED after 4-5 days of abdominal pain. He reports it started with stomach cramps about 5 days ago. He takes Metamucil daily and thought he needed a bowel movement. 4 days ago he ate supper and as he got up to walk he lost control of his rule but what came out was a mucous the clear to yellowish liquid that ran down his leg. He continued to have quite a bit of cramping. That next morning the same thing happened. He decided to quit eating at that point and things did get better. Last night he decided to eat and had a grilled cheese sandwich and a bowl of chicken noodles soup. He has continued to have some cramping with only slight liquid output with minimal stool. He states he feels like he needs to go and pushes quite a bit but can't get much out. His last normal bowel movement was this past Thursday. He states that when he was urinating his abdomen would hurt a bit as well. The cramping and discomfort is in the bilateral distal lower quadrants and suprapubic area. He states he's been intermittently hot and cold for the last 4 to 5 days but denies any fevers. He had one episode of lightheadedness last Thursday when getting out of the car and standing. He's not had any problems since then or prior to that. He denies any problems with worsening shortness of breath or dyspnea on exertion. He states he uses Symbicort daily and if he ever has a wheeze or slight increase in breathing problems he'll just use his other PRN inhalers. He denies any cough or sputum production. He denies any chest pain, pressure or tightness. He denies palpitations. He was slightly nauseated yesterday and he had some leftover anti- in that it from when he had his shoulder surgery to take with Percocet for pain and he took one of those with resolution and no further problems with nausea. He said no vomiting. Other than the mucous he is not really had any stool out since Thursday. He denies any black tarry stools or bloody stools. He denies any problems urinating but did have a little discomfort when urinating in the same area as his abdominal cramping. He even thought he might have a urinary tract infection causing all the problems so he took his 's home remedy of cinnamon and honey. He occasionally has some swelling in his bilateral ankles at the end of the day but it's always gone by morning. Objective Vital signs: Temperature 97.8 F 01/06/18 15:11 Pulse Rate 73 01/06/18 15:11 Respiratory Rate 18 01/06/18 15:11 Blood Pressure 129/85 01/06/18 15:11 Pulse Oximetry 96 01/06/18 15:11 Height/Weight/BMI: Height 1.75 m Weight 90.1 kg Body Mass Index 29.1 Comments: Temp 97.8, pulse 73, blood pressure 129/85, O2 sat 96% on room air On exam the patient is alert and oriented 3 and in no acute distress. Chest is clear to auscultation. Cardiovascular reveals a regular rate and rhythm. Abdomen is soft and nondistended. Bowel sounds are present. He has very minimal tenderness in the left lower quadrant. No rebound or guarding. Extremities are free of edema. Skin is warm and dry and without rashes. Hospital Course This is a general summary of the patient's hospital course. For more details refer to the complete medical record. Hospital course: The patient was admitted on 01/03/2018 with lower abdominal pain. CT abdomen showed diverticulitis with possible intramural abscess or phlegmon development. The patient was initially placed on Zosyn, Cipro and Flagyl. Cipro and Flagyl were discontinued and he remained on Zosyn the remainder of the hospital course. Dr. Lopez was consulted and recommended continued antibiotics and nothing by mouth status. The patient was given IV fluids for hydration. As the patient's pain improved, he was started on clear liquid diet. Diet was slowly increased and he did not have any discomfort. He had been having mucus from the rectum for several days, on the day of discharge she was having small normal- appearing bowel movements. The mucus had improved markedly. On the day of discharge she was tolerating a regular diet. Leukocytosis had resolved. The patient had no difficulties with COPD or asthma during the hospital course. On 01/06/2018 was felt patient was stable for dismissal to home. He will be on Cipro and Flagyl for the next 2 weeks. He is to follow-up with Dr. Lopez in approximately one week. The patient will keep his scheduled appointment for later this month with Dr. Kimball, his primary care provider. Time spent with patient: discharge greater than 30 minutes Resuscitation Status: Full Code Discharge Plan - Discharge Disposition Discharge Date: 01/06/18 Disposition: 01 Discharged Home, Self-Care *Condition: Improved Reason For Visit (Visit label in EMR): Acute Diverticulitis - Discharge Medications *Discharge Medications: [place]NIDAZOLE [Flagyl] 500 mg PO TID 14 Days #42 tab Ciprofloxacin [Cipro 500 mg] 500 mg PO BID 14 Days #28 tab Continue 5-Hydroxytryptophan (5-Htp) [5-Htp] 100 mg PO DAILY PRN PRN Reason: Prn Orders Aspirin [Adult Aspirin] 81 mg PO DAILY Albuterol Sulfate [Proair Hfa] 2 puff INH Q4H PRN PRN Reason: Prn Orders Omeprazole [Prilosec] 20 mg PO DAILY Fluticasone Nasal [place] [Flonase] 1 spray EA NOSTRIL DAILY Ibuprofen [Advil] 400 mg PO BID Psyllium Husk [Metamucil] 1 dose PO DAILY Docusate Sodium [Colace] 100 mg PO HS Acetaminophen [Tylenol] 1,000 mg PO DAILY Symbicort (Budesonide 160 mcg-Formoterol 4.5 mcg)/actuation aerosol inhaler 2 puff INH BID #10.2 g - Discharge Packet/Instructions *Diet: Diet as tolerated *Activity: Return to work on Thursday, January 11 if your symptoms have improved *Pain Management/Treatment: Tylenol or ibuprofen as needed for pain *Wound Care: Not applicable *Expected Signs/Symptoms: Mild fatigue, occasional mild abdominal pain, you may continue to experience mucousy stools *Notify Physician if: Fever, increased abdominal pain, vomiting, severe constipation, frequent diarrhea, or any other concerning symptoms *During Business Hours Contact: Call your doctor's office *After Business Hours Contact: Call [facility] at [phone] and have your doctor paged *Pending Lab/Results: No Pending Lab - Referrals/Follow Up *Referrals/Follow Up: Abad Lopez MD [Physician] - 1 Week Dino Kimball MD [Primary Care Provider] - - Patient Handouts - Dismissal Complete Discharge Instructions are:: Complete Physician Narrative - Narrative Attestation Narrative: Date: 01/06/18 Time: 2505
== END 2018-01-06 18:00 | disposition home or self-care (01) | DRG 392 ==
LOC: ED 09:14 → EDHOLD 12:42 → SUATTDRO 12:42 → SRG 13:30
PROVIDERS: ADMIT Internal Medicine Cardiovascular Disease; ATTEND Internal Medicine